=== PATIENT | male | born 1970 | race Caucasian/White ===

== ENCOUNTER 2021-09-29 09:25 | Outpatient (CLI) | payer OTHER ==
[~2021-09-29] VITALS: Ht 172.7 cm; Wt 127.0 kg
[2021-09-29] MEDS ORDERED: diphenhydrAMINE 50 MG/ML INJ (BENADRYL) IV PRN (09:45)
[2021-09-29] MEDS ORDERED: EPINEPHrine INJECTION 1 MG/ML AMP IM PRN (09:45)
[2021-09-29] MEDS ORDERED: ACETAMINOPHEN 500 MG TAB (TYLENOL) PO PRN (09:45)
[2021-09-29] MEDS ORDERED: CASIRIVIMAB/IMDEVIMAB 1,200 MG in NS (IVPB) 250 ML IV ONE (09:45)
[2021-09-29] MEDS ORDERED: ONDANSETRON 4 MG/2 ML (SDV) Z0FRAN IV PRN (09:45)
[2021-09-29 10:20] VITALS: BP 146/86
[2021-09-29 11:34] VITALS: BP 146/84
== END 2021-09-29 11:37 | disposition home or self-care (01) ==
LOC: INFUSION 09:25
PROVIDERS: ATTEND Family Medicine
DX: U07.1 COVID-19 (principal)